=== PATIENT | male | born 1960 | race African-American/Black ===

== ENCOUNTER 2016-11-28 16:05 | Emergency (ER) | payer OTHER ==
[~2016-11-28 16:05] MED LIST: ADVIL200 M3; HYDROXYZINE HCL25 M1 PO; NAPROSYN500 MG PO
== END 2016-11-28 17:22 | disposition home or self-care (01) ==
LOC: CED 16:05 → CFTX 16:05 → CED 17:17 → CFTX 17:17
DX: R20.2 Paresthesia of skin (principal); F17.210 Nicotine dependence, cigarettes, uncomplicated
CPT/HCPCS: 99282